=== PATIENT | female | born 1970 | race Caucasian/White ===

== ENCOUNTER 2020-03-24 12:17 | Inpatient (IN) ==
[2020-03-24 13:45] LABS: Basophils # 0.1 K/mcL (0.0-0.2); Basophils % 0.8 %; Eosinophils # 0.2 K/mcL (0.0-0.6); Eosinophils % 1.8 %; Hematocrit 35.7 % (35.3-44.9); Hemoglobin 11.1 g/dL (11.5-15.4); Immature Granulocytes % 0.3 % (0-4); Lymphocytes # 1.8 K/mcL (0.6-4.6); Lymphocytes % 18.4 %; Mean Corpuscular HGB Conc 31.1 g/dL (31.6-35.5); Mean Corpuscular Hemoglobin 25.5 pg (28.0-33.3); Mean Corpuscular Volume 82.1 fL (83.0-100.0); Mean Platelet Volume 9.6 fL (9.4-12.4); Monocytes # 0.4 K/mcL (0.0-1.3); Monocytes % 4.5 %; Neutrophils # 7.1 K/mcL (1.6-8.9); Platelet Count 443 K/mcL (140-400); Red Blood Count 4.35 M/mcL (3.82-4.97); Red Cell Distribution Width 13.3 % (11.5-14.5); Segmented Neutrophils % 74.2 %; White Blood Count 9.5 K/mcL (4.3-11.1)
[2020-03-24 14:18] LABS: Alanine Aminotransferase 7 Units/L (7-52); Albumin 3.2 g/dL (3.5-5.7); Albumin/Globulin Ratio 0.9 (1.1-2.2); Alkaline Phosphatase 110 Units/L (34-104); Aspartate Amino Transferase 11 Units/L (13-39); BUN/Creatinine Ratio 10 (6-26); Bilirubin,Total 0.3 mg/dL (0.3-1.0); Blood Urea Nitrogen 27 mg/dL (6-20); Calcium 8.2 mg/dL (8.6-10.3); Carbon Dioxide 20 mEq/L (23-29); Chloride 102 mEq/L (98-107); Globulin 3.6 g/dL (2.4-3.5); Glucose 244 mg/dL (70-105); Magnesium 1.7 mg/dL (1.6-2.6); Osmolality,Calculated 289 (280-300); Sodium 133 mEq/L (136-145); Total Protein 6.8 g/dL (6.4-8.9); Troponin I < 0.03 ng/mL (< 0.04); eGFR For African Americans 23 (> 60); eGFR For Non-African Americans 19 (> 60)
[2020-03-24] MEDS ORDERED: 0.9 % Sodium Chloride 1,000 ML IVC ONE (14:44)
[2020-03-24 15:04] LABS: Bacteria,Urine Few per hpf (None-Few); Bilirubin,Urine Negative (Negative); Blood,Urine Trace (Negative); Clarity,Urine Clear (Clear); Color,Urine Colorless (Yellow); Glucose,Urine (UA) 500 mg/dL (Normal); Ketones,Urine Negative (Negative); Leukocyte Esterase,Urine Small (Negative); Nitrite,Urine Negative (Negative); PH,Urine 6.5 pH Units (5.0-8.0); Protein,Urine >=300 mg/dL (Neg-Trace); Specific Gravity,Urine 1.008 (1.010-1.025); Squamous Epithelial Cell,Urine Few per hpf (None-Few); Urobilinogen,Urine Normal (Normal); WBC,Urine 30-50 per hpf (0-3)
[2020-03-24] MEDS ORDERED: *HR* Metoprolol 5 MG/5 ML VIAL IVP ONE (15:36)
[2020-03-24] MEDS ORDERED: cefTRIAXone 1,000 MG in 0.9 % Sodium Chloride Mini Bag 100 ML IVPB ONE (15:46)
[2020-03-24] MEDS ORDERED: Naloxone 0.4 MG/ML INJ IVP PRN (16:39)
[2020-03-24] MEDS ORDERED: niCARdipine 20 MG/200 ML MLS IVC SCH (16:45)
[2020-03-24] MEDS ORDERED: D5% in Water 1,000 ML IVC PRN (17:23)
[2020-03-24] MEDS ORDERED: Dextrose Gel 15 GM/37.5 ML TUBE PO PRN ×2 (17:23)
[2020-03-24] MEDS ORDERED: *HR* Dextrose 50 % in Water (Vial) 50 ML VIAL IVP PRN (17:23)
[2020-03-24 18:22] LABS: Complement C3 114 mg/dL (87-200)
[2020-03-24 18:36] LABS: Estimated Average Glucose 332 mg/dl; Hemoglobin A1C 13.2 %
[2020-03-24 18:53] LABS: Creatinine,Urine 43 mg/dL; Microalbumin,Urine > 1350 mg/L; Sodium, Urine 55.3 mEq/L
[2020-03-24 18:55] LABS: Troponin I < 0.03 ng/mL (< 0.04)
[2020-03-24 19:05] LABS: Creatine Kinase 85 Units/L (30-223); Uric Acid 5.1 mg/dL (2.3-7.6)
[2020-03-24] MEDS ORDERED: Insulin LISPRO 300 UNITS/3 ML VIAL SUBQ SCH (21:00)
[2020-03-25 00:35] LABS: Basophils # 0.1 K/mcL (0.0-0.2); Basophils % 0.4 %; Eosinophils # 0.1 K/mcL (0.0-0.6); Eosinophils % 1.2 %; Hematocrit 35.5 % (35.3-44.9); Hemoglobin 11.1 g/dL (11.5-15.4); Immature Granulocytes % 0.3 % (0-4); Lymphocytes % 17.1 %; Mean Corpuscular HGB Conc 31.3 g/dL (31.6-35.5); Mean Corpuscular Hemoglobin 26.1 pg (28.0-33.3); Mean Corpuscular Volume 83.3 fL (83.0-100.0); Mean Platelet Volume 9.3 fL (9.4-12.4); Monocytes # 0.5 K/mcL (0.0-1.3); Monocytes % 4.2 %; Platelet Count 452 K/mcL (140-400); Red Blood Count 4.26 M/mcL (3.82-4.97); Red Cell Distribution Width 13.5 % (11.5-14.5); Segmented Neutrophils % 76.8 %; White Blood Count 11.8 K/mcL (4.3-11.1)
[2020-03-25 00:55] LABS: Albumin 3.1 g/dL (3.5-5.7); Albumin/Globulin Ratio 0.9 (1.1-2.2); Bilirubin,Total 0.3 mg/dL (0.3-1.0); Calcium 7.9 mg/dL (8.6-10.3); Globulin 3.5 g/dL (2.4-3.5); Potassium 3.9 mEq/L (3.5-5.1); Total Protein 6.6 g/dL (6.4-8.9)
[2020-03-25] MEDS ORDERED: Insulin LISPRO 300 UNITS/3 ML VIAL SUBQ SCH (07:30)
[2020-03-25] MEDS ORDERED: Gabapentin 400 MG CAPSULE PO PRN (07:49)
[2020-03-25] MEDS ORDERED: Ringers Solution, Lactated 1,000 ML IVC SCH (08:00)
[2020-03-25] MEDS ORDERED: amLODIPine 5 MG TABLET PO SCH (09:00)
[2020-03-25 09:23] LABS: Amphetamine Screen,Urine Negative ng/mL (Cutoff=1000); Barbiturate Screen,Urine Negative ng/mL (Cutoff=200); Benzodiazepines Screen,Urine Negative ng/mL (Cutoff=200); Cannabinoid Screen,Urine Negative ng/mL (Cutoff = 50); Cocaine Screen,Urine Negative ng/mL (Cutoff= 300); Opiate Screen,Urine Negative ng/mL (Cutoff=300); Phencyclidine Screen,Urine Negative ng/mL (Cutoff=25)
[2020-03-25] MEDS: Loratadine 10 MG TABLET PO SCH (09:50)
[2020-03-25] MEDS: Metoprolol XL (24 HR) Succ 50 MG TAB.ER.24H PO SCH (09:50)
[2020-03-25] MEDS: BuPROPion SR (12 HR) 150 MG TABLET PO SCH (09:50)
[2020-03-25] MEDS: Prenatal Vit/FA 1 EACH TABLET PO SCH (09:51)
[2020-03-25] MEDS: cefTRIAXone 1,000 MG in Water for inj. (sterile) 10 ML IVP SCH (09:51)
[2020-03-25] MEDS: Insulin LISPRO 300 UNITS/3 ML VIAL SUBQ SCH ×2 (11:09→17:33)
[2020-03-25] MEDS ORDERED: cefTRIAXone 1,000 MG in Water for inj. (sterile) 10 ML IVP SCH (16:00)
[2020-03-25] MEDS: *HR* Heparin 5,000 UNIT/ML VIAL SQ SCH (17:34)
[2020-03-25] MEDS: Latanoprost 2.5 ML BOTTLE RIGHT EYE SCH (20:35)
[2020-03-26 06:04] LABS: Basophils # 0.1 K/mcL (0.0-0.2); Basophils % 0.6 %; Eosinophils # 0.2 K/mcL (0.0-0.6); Eosinophils % 2.1 %; Hematocrit 32.2 % (35.3-44.9); Hemoglobin 9.8 g/dL (11.5-15.4); Immature Granulocytes % 0.5 % (0-4); Lymphocytes # 2.6 K/mcL (0.6-4.6); Lymphocytes % 32.9 %; Mean Corpuscular HGB Conc 30.4 g/dL (31.6-35.5); Mean Corpuscular Hemoglobin 26.1 pg (28.0-33.3); Mean Corpuscular Volume 85.6 fL (83.0-100.0); Mean Platelet Volume 10.5 fL (9.4-12.4); Monocytes # 0.4 K/mcL (0.0-1.3); Neutrophils # 4.7 K/mcL (1.6-8.9); Platelet Count 310 K/mcL (140-400); Red Blood Count 3.76 M/mcL (3.82-4.97); Red Cell Distribution Width 13.6 % (11.5-14.5); Segmented Neutrophils % 58.9 %; White Blood Count 7.9 K/mcL (4.3-11.1)
[2020-03-26] MEDS: *HR* Heparin 5,000 UNIT/ML VIAL SQ SCH ×2 (06:08→17:19)
[2020-03-26] MEDS: Levothyroxine 25 MCG TABLET PO SCH (06:11)
[2020-03-26 06:45] LABS: Albumin 2.6 g/dL (3.5-5.7); Albumin/Globulin Ratio 0.9 (1.1-2.2); Bilirubin,Total 0.2 mg/dL (0.3-1.0); Calcium 7.7 mg/dL (8.6-10.3); Potassium 4.4 mEq/L (3.5-5.1); Total Protein 5.6 g/dL (6.4-8.9)
[2020-03-26 06:46] LABS: Magnesium 1.5 mg/dL (1.6-2.6); Phosphorous 4.4 mg/dL (2.7-4.5)
[2020-03-26] MEDS: Insulin LISPRO 300 UNITS/3 ML VIAL SUBQ SCH ×6 (07:48→17:19)
[2020-03-26] MEDS: Metoprolol XL (24 HR) Succ 50 MG TAB.ER.24H PO SCH (07:49)
[2020-03-26] MEDS: BuPROPion SR (12 HR) 150 MG TABLET PO SCH (07:50)
[2020-03-26] MEDS: cefTRIAXone 1,000 MG in Water for inj. (sterile) 10 ML IVP SCH (07:50)
[2020-03-26] MEDS: Magnesium Oxide 400 MG TABLET PO SCH ×2 (07:50→20:31)
[2020-03-26] MEDS: Loratadine 10 MG TABLET PO SCH (07:50)
[2020-03-26] MEDS: amLODIPine 5 MG TABLET PO SCH (07:50)
[2020-03-26] MEDS: Prenatal Vit/FA 1 EACH TABLET PO SCH (07:50)
[2020-03-26] MEDS: Insulin DETEMIR 100 UNIT/ML X5UNITS SUBQ SCH ×2 (10:08→20:32)
[2020-03-26] MEDS: hydrALAZINE 25 MG TABLET PO SCH ×2 (17:18→23:26)
[2020-03-26] MEDS: Cefdinir 300 MG CAPSULE PO SCH (20:31)
[2020-03-26] MEDS: Latanoprost 2.5 ML BOTTLE RIGHT EYE SCH (20:32)
[2020-03-27 05:04] LABS: Basophils # 0.1 K/mcL (0.0-0.2); Basophils % 0.7 %; Eosinophils # 0.2 K/mcL (0.0-0.6); Eosinophils % 2.1 %; Hematocrit 32.6 % (35.3-44.9); Hemoglobin 10.2 g/dL (11.5-15.4); Immature Granulocytes % 0.5 % (0-4); Lymphocytes % 25.7 %; Mean Corpuscular HGB Conc 31.3 g/dL (31.6-35.5); Mean Corpuscular Hemoglobin 26.1 pg (28.0-33.3); Mean Corpuscular Volume 83.4 fL (83.0-100.0); Mean Platelet Volume 10.8 fL (9.4-12.4); Monocytes # 0.6 K/mcL (0.0-1.3); Neutrophils # 7.7 K/mcL (1.6-8.9); Platelet Count 357 K/mcL (140-400); Red Blood Count 3.91 M/mcL (3.82-4.97); Red Cell Distribution Width 13.3 % (11.5-14.5); White Blood Count 11.7 K/mcL (4.3-11.1)
[2020-03-27 05:27] LABS: Albumin/Globulin Ratio 0.9 (1.1-2.2); Bilirubin,Total 0.2 mg/dL (0.3-1.0); Calcium 8.3 mg/dL (8.6-10.3); Globulin 3.4 g/dL (2.4-3.5); Magnesium 1.7 mg/dL (1.6-2.6); Phosphorous 4.6 mg/dL (2.7-4.5); Potassium 4.1 mEq/L (3.5-5.1); Total Protein 6.4 g/dL (6.4-8.9)
[2020-03-27 05:53] LABS: Hepatitis B Surface Antigen Nonreactive (Nonreactive)
[2020-03-27] MEDS: Levothyroxine 25 MCG TABLET PO SCH (05:59)
[2020-03-27] MEDS: *HR* Heparin 5,000 UNIT/ML VIAL SQ SCH ×2 (05:59→18:05)
[2020-03-27 06:22] LABS: Hepatitis B Core IgM Nonreactive (Nonreactive); Hepatitis C Virus Antibody Nonreactive (Nonreactive)
[2020-03-27 06:24] LABS: Hepatitis A Antibody IgM Nonreactive (Nonreactive)
[2020-03-27] MEDS: Insulin LISPRO 300 UNITS/3 ML VIAL SUBQ SCH ×6 (08:20→18:04)
[2020-03-27] MEDS: hydrALAZINE 25 MG TABLET PO SCH ×3 (08:21→23:34)
[2020-03-27] MEDS: Cefdinir 300 MG CAPSULE PO SCH ×2 (08:22→22:00)
[2020-03-27] MEDS: BuPROPion SR (12 HR) 150 MG TABLET PO SCH (08:22)
[2020-03-27] MEDS: Loratadine 10 MG TABLET PO SCH (08:22)
[2020-03-27] MEDS: Prenatal Vit/FA 1 EACH TABLET PO SCH (08:22)
[2020-03-27] MEDS: Metoprolol XL (24 HR) Succ 50 MG TAB.ER.24H PO SCH (08:22)
[2020-03-27] MEDS: amLODIPine 5 MG TABLET PO SCH (08:23)
[2020-03-27] MEDS: Magnesium Oxide 400 MG TABLET PO SCH ×2 (08:23→20:50)
[2020-03-27] MEDS: Insulin DETEMIR 100 UNIT/ML X5UNITS SUBQ SCH ×2 (08:23→20:50)
[2020-03-27] MEDS: Latanoprost 2.5 ML BOTTLE RIGHT EYE SCH (22:04)
[2020-03-28 01:12] LABS: Calcium 8.1 mg/dL (8.6-10.3); Magnesium 1.7 mg/dL (1.6-2.6); Phosphorous 5.3 mg/dL (2.7-4.5); Potassium 4.4 mEq/L (3.5-5.1)
[2020-03-28] MEDS: *HR* Heparin 5,000 UNIT/ML VIAL SQ SCH ×2 (07:35→17:49)
[2020-03-28] MEDS: Magnesium Oxide 400 MG TABLET PO SCH ×2 (07:36→20:36)
[2020-03-28] MEDS: hydrALAZINE 25 MG TABLET PO SCH ×3 (07:36→23:36)
[2020-03-28] MEDS: Cefdinir 300 MG CAPSULE PO SCH ×2 (07:36→09:16)
[2020-03-28] MEDS: Prenatal Vit/FA 1 EACH TABLET PO SCH (07:36)
[2020-03-28] MEDS: Loratadine 10 MG TABLET PO SCH (07:36)
[2020-03-28] MEDS: amLODIPine 5 MG TABLET PO SCH (07:37)
[2020-03-28] MEDS: Levothyroxine 25 MCG TABLET PO SCH (07:40)
[2020-03-28] MEDS: Insulin DETEMIR 100 UNIT/ML X5UNITS SUBQ SCH ×2 (07:40→20:39)
[2020-03-28] MEDS: BuPROPion SR (12 HR) 150 MG TABLET PO SCH (07:40)
[2020-03-28] MEDS: Insulin LISPRO 300 UNITS/3 ML VIAL SUBQ SCH ×6 (07:41→16:29)
[2020-03-28 09:36] LABS: ANA IgG by ELISA NONE DETECTED (None Detected)
[2020-03-28] MEDS: Latanoprost 2.5 ML BOTTLE RIGHT EYE SCH (20:36)
[2020-03-29 01:46] LABS: Magnesium 1.7 mg/dL (1.6-2.6); Phosphorous 5.2 mg/dL (2.7-4.5); Potassium 4.4 mEq/L (3.5-5.1)
[2020-03-29] MEDS: Levothyroxine 25 MCG TABLET PO SCH (06:08)
[2020-03-29] MEDS: *HR* Heparin 5,000 UNIT/ML VIAL SQ SCH ×2 (06:08→16:40)
[2020-03-29 07:32] LABS: Anti-Streptolysin O Antibody 65 IU/mL (0-330)
[2020-03-29 07:35] LABS: Serine Protease-3 Antibody 5 AU/mL (0-19)
[2020-03-29] MEDS: amLODIPine 5 MG TABLET PO SCH (07:37)
[2020-03-29] MEDS: BuPROPion SR (12 HR) 150 MG TABLET PO SCH (07:37)
[2020-03-29] MEDS: Prenatal Vit/FA 1 EACH TABLET PO SCH (07:38)
[2020-03-29] MEDS: Cefdinir 300 MG CAPSULE PO SCH (07:38)
[2020-03-29] MEDS: Magnesium Oxide 400 MG TABLET PO SCH ×2 (07:38→19:59)
[2020-03-29] MEDS: hydrALAZINE 25 MG TABLET PO SCH (07:38)
[2020-03-29] MEDS: Insulin DETEMIR 100 UNIT/ML X5UNITS SUBQ SCH ×2 (07:39→19:59)
[2020-03-29] MEDS: Loratadine 10 MG TABLET PO SCH (07:39)
[2020-03-29] MEDS: Insulin LISPRO 300 UNITS/3 ML VIAL SUBQ SCH ×6 (07:40→16:41)
[2020-03-29] MEDS ORDERED: carvediloL 6.25 MG TABLET PO SCH ×2 (08:00→17:00)
[2020-03-29] MEDS ORDERED: NIFEdipine XL (24 HR) 60 MG TAB.ER.24 PO SCH (09:00)
[2020-03-29 11:06] LABS: Total Volume 24 Hour,Urine 1.75 Liters (0.60-1.60)
[2020-03-29 11:49] LABS: Creatinine 24 Hour,Urine 910 mg/day (600-1800); Creatinine,Urine 52 mg/dL; Microalbumin,Urine > 1350 mg/L; Protein/Creatinine Ratio,Urine 7.31 mg/mg (0.00-0.20); Total Protein 24 Hour,Urine 6650 mg/day (50-80)
[2020-03-29] MEDS ORDERED: NIFEdipine XL (24 HR) 30 MG TAB.ER.24 PO ONE (12:27)
[2020-03-29 18:07] LABS: GBM IgG Multiplex Bead Assay 1 AU/mL (0-19); Glomerular Basement Memb IgG NEGATIVE (Negative)
[2020-03-29] MEDS ORDERED: carvediloL 6.25 MG TABLET PO ONE (18:30)
[2020-03-29] MEDS: Albumin 25% 25gram/100mL 25 GM/100 ML IV.SOLN IVPB SCH (19:59)
[2020-03-29] MEDS: Latanoprost 2.5 ML BOTTLE RIGHT EYE SCH (19:59)
[2020-03-30 02:47] LABS: Urine Collection Volume RANDOM mL
[2020-03-30 03:53] LABS: Basophils # 0.1 K/mcL (0.0-0.2); Basophils % 0.5 %; Eosinophils # 0.2 K/mcL (0.0-0.6); Hematocrit 30.8 % (35.3-44.9); Hemoglobin 9.7 g/dL (11.5-15.4); Immature Granulocytes % 0.4 % (0-4); Lymphocytes # 2.6 K/mcL (0.6-4.6); Lymphocytes % 22.2 %; Mean Corpuscular HGB Conc 31.5 g/dL (31.6-35.5); Mean Corpuscular Hemoglobin 25.6 pg (28.0-33.3); Mean Corpuscular Volume 81.3 fL (83.0-100.0); Mean Platelet Volume 9.7 fL (9.4-12.4); Monocytes # 0.6 K/mcL (0.0-1.3); Monocytes % 4.7 %; Neutrophils # 8.3 K/mcL (1.6-8.9); Platelet Count 379 K/mcL (140-400); Red Blood Count 3.79 M/mcL (3.82-4.97); Red Cell Distribution Width 13.8 % (11.5-14.5); Segmented Neutrophils % 70.2 %; White Blood Count 11.8 K/mcL (4.3-11.1)
[2020-03-30 04:17] LABS: Calcium 8.6 mg/dL (8.6-10.3); Phosphorous 4.8 mg/dL (2.7-4.5); Potassium 4.2 mEq/L (3.5-5.1)
[2020-03-30 04:40] LABS: Folate 12.6 ng/mL (3.0-16.0)
[2020-03-30] MEDS: Levothyroxine 25 MCG TABLET PO SCH (05:43)
[2020-03-30] MEDS: *HR* Heparin 5,000 UNIT/ML VIAL SQ SCH ×2 (05:43→17:10)
[2020-03-30] MEDS: Prenatal Vit/FA 1 EACH TABLET PO SCH (07:21)
[2020-03-30] MEDS: Loratadine 10 MG TABLET PO SCH (07:21)
[2020-03-30] MEDS: Magnesium Oxide 400 MG TABLET PO SCH ×2 (07:21→20:41)
[2020-03-30] MEDS: carvediloL 6.25 MG TABLET PO SCH ×2 (07:21→20:42)
[2020-03-30] MEDS: Cefdinir 300 MG CAPSULE PO SCH (07:21)
[2020-03-30] MEDS: Insulin DETEMIR 100 UNIT/ML X5UNITS SUBQ SCH ×2 (07:25→20:42)
[2020-03-30] MEDS: BuPROPion SR (12 HR) 150 MG TABLET PO SCH (07:25)
[2020-03-30] MEDS: Insulin LISPRO 300 UNITS/3 ML VIAL SUBQ SCH ×6 (07:26→17:09)
[2020-03-30 08:50] LABS: Prothrombin Time 11.4 Seconds (9.4-12.1)
[2020-03-30] MEDS ORDERED: NIFEdipine XL (24 HR) 30 MG TAB.ER.24 PO SCH (09:00)
[2020-03-30] MEDS ORDERED: NIFEdipine XL (24 HR) 60 MG TAB.ER.24 PO SCH (09:00)
[2020-03-30] MEDS ORDERED: NIFEdipine XL (24 HR) 30 MG TAB.ER.24 PO ONE (09:00)
[2020-03-30] MEDS: Albumin 25% 25gram/100mL 25 GM/100 ML IV.SOLN IVPB SCH (10:31)
[2020-03-30] MEDS ORDERED: *HR* LORazepam 0.5 MG TABLET PO PRN (10:32)
[2020-03-30] MEDS: Iron Sucrose Complex 250 MG in 0.9 % Sodium Chloride 250 ML IVPB SCH (11:35)
[2020-03-30] MEDS ORDERED: Sodium Bicarbonate 75 MEQ in 0.45 % Sodium Chloride 1,000 ML IVC SCH (16:15)
[2020-03-30] MEDS: Latanoprost 2.5 ML BOTTLE RIGHT EYE SCH (20:43)
[2020-03-31] MEDS: *HR* Heparin 5,000 UNIT/ML VIAL SQ SCH ×2 (04:49→16:50)
[2020-03-31] MEDS: Levothyroxine 25 MCG TABLET PO SCH (04:57)
[2020-03-31] MEDS: Insulin LISPRO 300 UNITS/3 ML VIAL SUBQ SCH ×6 (07:10→16:51)
[2020-03-31] MEDS: Iron Sucrose Complex 250 MG in 0.9 % Sodium Chloride 250 ML IVPB SCH (07:28)
[2020-03-31] MEDS: Magnesium Oxide 400 MG TABLET PO SCH ×2 (07:41→20:39)
[2020-03-31] MEDS: Prenatal Vit/FA 1 EACH TABLET PO SCH (07:41)
[2020-03-31] MEDS: BuPROPion SR (12 HR) 150 MG TABLET PO SCH (07:41)
[2020-03-31] MEDS: NIFEdipine XL (24 HR) 30 MG TAB.ER.24 PO SCH (07:41)
[2020-03-31] MEDS: carvediloL 25 MG TABLET PO SCH ×2 (07:41→16:51)
[2020-03-31] MEDS: Loratadine 10 MG TABLET PO SCH (07:41)
[2020-03-31] MEDS: Cefdinir 300 MG CAPSULE PO SCH (07:42)
[2020-03-31] MEDS: Insulin DETEMIR 100 UNIT/ML X5UNITS SUBQ SCH ×2 (07:42→20:39)
[2020-03-31 07:52] LABS: Basophils # 0.1 K/mcL (0.0-0.2); Basophils % 0.7 %; Eosinophils # 0.2 K/mcL (0.0-0.6); Eosinophils % 1.5 %; Hematocrit 30.5 % (35.3-44.9); Hemoglobin 9.7 g/dL (11.5-15.4); Immature Granulocytes % 1.6 % (0-4); Lymphocytes # 1.8 K/mcL (0.6-4.6); Lymphocytes % 15.3 %; Mean Corpuscular HGB Conc 31.8 g/dL (31.6-35.5); Mean Corpuscular Hemoglobin 25.6 pg (28.0-33.3); Mean Corpuscular Volume 80.5 fL (83.0-100.0); Mean Platelet Volume 10.8 fL (9.4-12.4); Monocytes # 0.6 K/mcL (0.0-1.3); Monocytes % 4.8 %; Neutrophils # 9.1 K/mcL (1.6-8.9); Nucleated Red Blood Cells 0.2 /100 WBC (0); Platelet Count 326 K/mcL (140-400); Red Blood Count 3.79 M/mcL (3.82-4.97); Segmented Neutrophils % 76.1 %
[2020-03-31 08:16] LABS: Calcium 8.6 mg/dL (8.6-10.3); Magnesium 2.1 mg/dL (1.6-2.6); Phosphorous 4.6 mg/dL (2.7-4.5)
[2020-03-31] MEDS ORDERED: *HR* Midazolam HCl 2 MG/2 ML VIAL IVP ONE (09:19)
[2020-03-31] MEDS ORDERED: *HR* FentaNYL (PF) 100 MCG/2 ML VIAL IVP ONE (09:19)
[2020-03-31] MEDS ORDERED: 0.9 % Sodium Chloride 500 ML ONE (09:30)
[2020-03-31] MEDS: Sodium Bicarbonate 75 MEQ in 0.45 % Sodium Chloride 1,000 ML IVC SCH ×2 (11:40→21:27)
[2020-03-31] MEDS: Latanoprost 2.5 ML BOTTLE RIGHT EYE SCH (20:39)
[2020-03-31] MEDS ORDERED: carvediloL 6.25 MG TABLET PO ONE (22:49)
[2020-04-01 04:45] LABS: Basophils # 0.1 K/mcL (0.0-0.2); Basophils % 0.5 %; Eosinophils # 0.1 K/mcL (0.0-0.6); Eosinophils % 0.7 %; Hematocrit 30.3 % (35.3-44.9); Hemoglobin 9.5 g/dL (11.5-15.4); Immature Granulocytes % 0.9 % (0-4); Immature Platelets 7.2 % (1.1-6.1); Lymphocytes # 1.4 K/mcL (0.6-4.6); Lymphocytes % 8.7 %; Mean Corpuscular HGB Conc 31.4 g/dL (31.6-35.5); Mean Corpuscular Hemoglobin 25.3 pg (28.0-33.3); Mean Corpuscular Volume 80.8 fL (83.0-100.0); Mean Platelet Volume 11.8 fL (9.4-12.4); Monocytes # 0.7 K/mcL (0.0-1.3); Monocytes % 4.1 %; Neutrophils # 13.9 K/mcL (1.6-8.9); Platelet Count 261 K/mcL (140-400); Red Blood Count 3.75 M/mcL (3.82-4.97); Red Cell Distribution Width 13.9 % (11.5-14.5); Segmented Neutrophils % 85.1 %; White Blood Count 16.3 K/mcL (4.3-11.1)
[2020-04-01 04:52] LABS: Calcium 8.3 mg/dL (8.6-10.3); Magnesium 2.1 mg/dL (1.6-2.6); Potassium 5.3 mEq/L (3.5-5.1)
[2020-04-01 05:05] LABS: Large Platelets Present (Not Present); Platelet Estimate Normal (Normal)
[2020-04-01] MEDS: *HR* Heparin 5,000 UNIT/ML VIAL SQ SCH ×2 (05:42→18:28)
[2020-04-01] MEDS: Levothyroxine 25 MCG TABLET PO SCH (05:42)
[2020-04-01] MEDS: Iron Sucrose Complex 250 MG in 0.9 % Sodium Chloride 250 ML IVPB SCH (09:35)
[2020-04-01] MEDS: BuPROPion SR (12 HR) 150 MG TABLET PO SCH (09:35)
[2020-04-01] MEDS: NIFEdipine XL (24 HR) 30 MG TAB.ER.24 PO SCH (09:35)
[2020-04-01] MEDS: Loratadine 10 MG TABLET PO SCH (09:35)
[2020-04-01] MEDS: carvediloL 25 MG TABLET PO SCH ×2 (09:35→18:28)
[2020-04-01] MEDS: Magnesium Oxide 400 MG TABLET PO SCH ×2 (09:35→20:39)
[2020-04-01] MEDS: Prenatal Vit/FA 1 EACH TABLET PO SCH (09:35)
[2020-04-01] MEDS: Insulin DETEMIR 100 UNIT/ML X5UNITS SUBQ SCH ×2 (09:36→20:39)
[2020-04-01] MEDS: Insulin LISPRO 300 UNITS/3 ML VIAL SUBQ SCH ×6 (09:37→18:28)
[2020-04-01] MEDS: SODIUM ZIRCONIUM CYCLOSILICATE 5 GM POWD.PACK PO SCH (11:38)
[2020-04-01] MEDS: Sodium Bicarbonate 75 MEQ in 0.45 % Sodium Chloride 1,000 ML IVC SCH (18:27)
[2020-04-01] MEDS: Latanoprost 2.5 ML BOTTLE RIGHT EYE SCH (20:43)
[2020-04-02 02:33] LABS: Basophils # 0.1 K/mcL (0.0-0.2); Basophils % 0.5 %; Eosinophils # 0.1 K/mcL (0.0-0.6); Hematocrit 26.8 % (35.3-44.9); Hemoglobin 8.6 g/dL (11.5-15.4); Lymphocytes % 16.3 %; Mean Corpuscular HGB Conc 32.1 g/dL (31.6-35.5); Mean Corpuscular Hemoglobin 26.1 pg (28.0-33.3); Mean Corpuscular Volume 81.5 fL (83.0-100.0); Mean Platelet Volume 10.2 fL (9.4-12.4); Monocytes # 0.6 K/mcL (0.0-1.3); Monocytes % 5.3 %; Neutrophils # 9.2 K/mcL (1.6-8.9); Nucleated Red Blood Cells 0.2 /100 WBC (0); Platelet Count 292 K/mcL (140-400); Red Blood Count 3.29 M/mcL (3.82-4.97); Segmented Neutrophils % 75.9 %; White Blood Count 12.1 K/mcL (4.3-11.1)
[2020-04-02 02:55] LABS: Calcium 8.2 mg/dL (8.6-10.3); Magnesium 2.2 mg/dL (1.6-2.6); Potassium 3.7 mEq/L (3.5-5.1)
[2020-04-02] MEDS: Sodium Bicarbonate 75 MEQ in 0.45 % Sodium Chloride 1,000 ML IVC SCH (03:20)
[2020-04-02] MEDS: *HR* Heparin 5,000 UNIT/ML VIAL SQ SCH ×2 (06:25→17:49)
[2020-04-02] MEDS: Levothyroxine 25 MCG TABLET PO SCH (06:25)
[2020-04-02] MEDS: NIFEdipine XL (24 HR) 30 MG TAB.ER.24 PO SCH (08:46)
[2020-04-02] MEDS: Prenatal Vit/FA 1 EACH TABLET PO SCH (08:46)
[2020-04-02] MEDS: Insulin LISPRO 300 UNITS/3 ML VIAL SUBQ SCH ×6 (08:46→18:11)
[2020-04-02] MEDS: cefTRIAXone 2,000 MG in 0.9 % Sodium Chloride Mini Bag 100 ML IVPB SCH (08:47)
[2020-04-02] MEDS: carvediloL 25 MG TABLET PO SCH ×2 (08:47→17:49)
[2020-04-02] MEDS: Loratadine 10 MG TABLET PO SCH (08:47)
[2020-04-02] MEDS: BuPROPion SR (12 HR) 150 MG TABLET PO SCH (08:47)
[2020-04-02] MEDS: Magnesium Oxide 400 MG TABLET PO SCH ×2 (08:47→20:46)
[2020-04-02] MEDS: Insulin DETEMIR 100 UNIT/ML X5UNITS SUBQ SCH ×2 (08:48→20:46)
[2020-04-02] MEDS: SODIUM ZIRCONIUM CYCLOSILICATE 5 GM POWD.PACK PO SCH (10:11)
[2020-04-02] MEDS ORDERED: Ferumoxytol 510 MG in 0.9 % Sodium Chloride 100 ML IVPB ONE (10:16)
[2020-04-02] MEDS ORDERED: Gabapentin 100 MG CAPSULE PO PRN (10:18)
[2020-04-02] MEDS ORDERED: Furosemide 40 MG/4 ML VIAL IVP ONE ×2 (12:16)
[2020-04-02 13:53] LABS: Adenovirus Not Detected (Not Detect); Bordetella Pertussis Not Detected (Not Detect); Chlamydophila pneumoniae Not Detected (Not Detect); Coronavirus 229E Not Detected (Not Detect); Coronavirus HKU1 Not Detected (Not Detect); Coronavirus NL63 Not Detected (Not Detect); Coronavirus OC43 Not Detected (Not Detect); Human Metapneumovirus Not Detected (Not Detect); Human Rhinovirus/Enterovirus Not Detected (Not Detect); Influenza A Subtype 2009 H1 Not Detected (Not Detect); Influenza B Not Detected (Not Detect); Mycoplasma pneumoniae Not Detected (Not Detect); Parainfluenza Virus 1 Not Detected (Not Detect); Parainfluenza Virus 2 Not Detected (Not Detect); Parainfluenza Virus 3 Not Detected (Not Detect); Parainfluenza Virus 4 Not Detected (Not Detect); Respiratory Syncytial Virus Not Detected (Not Detect); SARS-CoV-2 Not Detected (Not Detect)
[2020-04-02] MEDS: Cyanocobalamin (B-12) 1,000 MCG/ML VIAL IM SCH (14:38)
[2020-04-02] MEDS ORDERED: Perflutren Lipid Microsphere 1.3 ML in 0.9 % Sodium Chloride 8.7 ML IVP PRN (17:53)
[2020-04-02 18:03] LABS: ABG Base Excess -2 mEq/L (-2 to 3); ABG HCO3 23 mEq/L (21-27); ABG Oxygen Saturation 84 % (95-98); ABG PCO2 37 mmHg (35-45); ABG PO2 48 mmHg (85-104); ABG TCO2 24 mEq/L (20-26)
[2020-04-02] MEDS: Aspirin 325 MG TABLET PO SCH (19:25)
[2020-04-02] MEDS: Latanoprost 2.5 ML BOTTLE RIGHT EYE SCH (20:46)
[2020-04-02 20:59] LABS: ABG Base Excess -2 mEq/L (-2 to 3); ABG HCO3 23 mEq/L (21-27); ABG Oxygen Saturation 90 % (95-98); ABG PCO2 36 mmHg (35-45); ABG PH 7.41 pH Units (7.32-7.45); ABG PO2 58 mmHg (85-104); ABG TCO2 24 mEq/L (20-26)
[2020-04-03 01:01] LABS: Basophils # 0.1 K/mcL (0.0-0.2); Basophils % 0.4 %; Eosinophils # 0.1 K/mcL (0.0-0.6); Eosinophils % 1.1 %; Hematocrit 24.5 % (35.3-44.9); Hemoglobin 7.8 g/dL (11.5-15.4); Immature Granulocytes % 0.9 % (0-4); Lymphocytes # 1.7 K/mcL (0.6-4.6); Lymphocytes % 13.8 %; Mean Corpuscular HGB Conc 31.8 g/dL (31.6-35.5); Mean Corpuscular Hemoglobin 26.1 pg (28.0-33.3); Mean Corpuscular Volume 81.9 fL (83.0-100.0); Mean Platelet Volume 10.4 fL (9.4-12.4); Monocytes # 0.8 K/mcL (0.0-1.3); Monocytes % 6.4 %; Neutrophils # 9.5 K/mcL (1.6-8.9); Platelet Count 284 K/mcL (140-400); Red Blood Count 2.99 M/mcL (3.82-4.97); Red Cell Distribution Width 13.9 % (11.5-14.5); Segmented Neutrophils % 77.4 %; White Blood Count 12.3 K/mcL (4.3-11.1)
[2020-04-03 01:10] LABS: Prothrombin Time 11.9 Seconds (9.4-12.1)
[2020-04-03 01:21] LABS: Albumin 3.3 g/dL (3.5-5.7); Albumin/Globulin Ratio 0.9 (1.1-2.2); Bilirubin,Total 0.3 mg/dL (0.3-1.0); Calcium 7.6 mg/dL (8.6-10.3); Chol/HDL Ratio 3.7 (0-4.9); Globulin 3.5 g/dL (2.4-3.5); Magnesium 2.3 mg/dL (1.6-2.6); Potassium 3.7 mEq/L (3.5-5.1); Total Protein 6.8 g/dL (6.4-8.9); Troponin I 0.03 ng/mL (< 0.04)
[2020-04-03] MEDS: Levothyroxine 25 MCG TABLET PO SCH (06:27)
[2020-04-03] MEDS: *HR* Heparin 5,000 UNIT/ML VIAL SQ SCH ×2 (06:27→17:45)
[2020-04-03 08:17] LABS: Alpha 2 Globulin (PEP) 0.81 g/dL (0.48-1.05); Beta Globulin (PEP) 0.78 g/dL (0.48-1.10)
[2020-04-03 08:26] LABS: Immunoglobulin A 212 mg/dL (68-408); Immunoglobulin G 1250 mg/dL (768-1632); Immunoglobulin M 550 mg/dL (35-263)
[2020-04-03 08:27] LABS: IFE Reflexed IFE Done
[2020-04-03] MEDS: cefTRIAXone 2,000 MG in 0.9 % Sodium Chloride Mini Bag 100 ML IVPB SCH (09:02)
[2020-04-03] MEDS: Insulin DETEMIR 100 UNIT/ML X5UNITS SUBQ SCH ×2 (09:02→21:11)
[2020-04-03] MEDS: Insulin LISPRO 300 UNITS/3 ML VIAL SUBQ SCH ×6 (09:03→17:45)
[2020-04-03] MEDS: Cyanocobalamin (B-12) 1,000 MCG/ML VIAL IM SCH (09:03)
[2020-04-03] MEDS: Aspirin 325 MG TABLET PO SCH (09:04)
[2020-04-03] MEDS: Prenatal Vit/FA 1 EACH TABLET PO SCH (09:04)
[2020-04-03] MEDS: carvediloL 25 MG TABLET PO SCH ×2 (09:04→16:54)
[2020-04-03] MEDS: BuPROPion SR (12 HR) 150 MG TABLET PO SCH (09:04)
[2020-04-03] MEDS: NIFEdipine XL (24 HR) 30 MG TAB.ER.24 PO SCH (09:04)
[2020-04-03] MEDS: Loratadine 10 MG TABLET PO SCH (09:04)
[2020-04-03] MEDS: Magnesium Oxide 400 MG TABLET PO SCH ×2 (09:04→21:11)
[2020-04-03] MEDS ORDERED: Furosemide 40 MG/4 ML VIAL IVP ONE (14:26)
[2020-04-03] MEDS ORDERED: Ondansetron 4 MG/2 ML VIAL IVP ONE (14:56)
[2020-04-03] MEDS: Latanoprost 2.5 ML BOTTLE RIGHT EYE SCH (21:11)
[2020-04-04 05:11] LABS: Prothrombin Time 11.8 Seconds (9.4-12.1)
[2020-04-04 05:21] LABS: Basophils % 0.3 %; Eosinophils # 0.2 K/mcL (0.0-0.6); Eosinophils % 1.5 %; Hematocrit 24.2 % (35.3-44.9); Hemoglobin 7.6 g/dL (11.5-15.4); Lymphocytes # 1.4 K/mcL (0.6-4.6); Lymphocytes % 12.3 %; Mean Corpuscular HGB Conc 31.4 g/dL (31.6-35.5); Mean Corpuscular Hemoglobin 25.5 pg (28.0-33.3); Mean Corpuscular Volume 81.2 fL (83.0-100.0); Mean Platelet Volume 10.3 fL (9.4-12.4); Monocytes # 0.7 K/mcL (0.0-1.3); Monocytes % 6.3 %; Platelet Count 283 K/mcL (140-400); Red Blood Count 2.98 M/mcL (3.82-4.97); Red Cell Distribution Width 13.7 % (11.5-14.5); Segmented Neutrophils % 78.6 %; White Blood Count 11.4 K/mcL (4.3-11.1)
[2020-04-04 05:27] LABS: Calcium 7.5 mg/dL (8.6-10.3); Potassium 3.8 mEq/L (3.5-5.1)
[2020-04-04 05:28] LABS: Magnesium 2.4 mg/dL (1.6-2.6)
[2020-04-04 05:37] LABS: Hepatitis B Surface Antibody < 3.10 mIU/mL
[2020-04-04 05:48] LABS: Hepatitis B Surface Antigen Nonreactive (Nonreactive)
[2020-04-04 06:17] LABS: Hepatitis B Core IgM Nonreactive (Nonreactive)
[2020-04-04] MEDS: Levothyroxine 25 MCG TABLET PO SCH (06:34)
[2020-04-04] MEDS: *HR* Heparin 5,000 UNIT/ML VIAL SQ SCH ×2 (06:34→17:36)
[2020-04-04] MEDS: Insulin LISPRO 300 UNITS/3 ML VIAL SUBQ SCH ×6 (07:34→17:35)
[2020-04-04] MEDS: Insulin DETEMIR 100 UNIT/ML X5UNITS SUBQ SCH ×2 (07:53→20:27)
[2020-04-04] MEDS ORDERED: 0.9 % Sodium Chloride 250 ML IVC PRN (07:54)
[2020-04-04] MEDS ORDERED: *HR* Heparin 10,000 UNIT/10 ML VIAL IV PRN (07:54)
[2020-04-04] MEDS ORDERED: 0.9 % Sodium Chloride 1,000 ML PRIME SCH (08:00)
[2020-04-04] MEDS ORDERED: *HR* Midazolam HCl 2 MG/2 ML VIAL IVP ONE (08:23)
[2020-04-04] MEDS ORDERED: *HR* FentaNYL (PF) 100 MCG/2 ML VIAL IVP ONE (08:23)
[2020-04-04] MEDS ORDERED: Heparin 1,000 UNITS/500 mL 500 ML ONE (08:23)
[2020-04-04] MEDS ORDERED: Lidocaine/EPI 1:100k 1% 50 ML VIAL ONE (08:24)
[2020-04-04] MEDS ORDERED: 0.9 % Sodium Chloride 500 ML ONE (08:46)
[2020-04-04] MEDS ORDERED: CeFAZolin 2,000 MG/50 ML BAG IVPB ONE (08:59)
[2020-04-04] MEDS ORDERED: *HR* Heparin 5,000 UNIT/ML VIAL ONE (09:04)
[2020-04-04] MEDS: cefTRIAXone 2,000 MG in 0.9 % Sodium Chloride Mini Bag 100 ML IVPB SCH (12:29)
[2020-04-04] MEDS: Aspirin 325 MG TABLET PO SCH (12:30)
[2020-04-04] MEDS: Prenatal Vit/FA 1 EACH TABLET PO SCH (12:30)
[2020-04-04] MEDS: Magnesium Oxide 400 MG TABLET PO SCH ×2 (12:30→20:27)
[2020-04-04] MEDS: Loratadine 10 MG TABLET PO SCH (12:30)
[2020-04-04] MEDS: BuPROPion SR (12 HR) 150 MG TABLET PO SCH (12:30)
[2020-04-04] MEDS: NIFEdipine XL (24 HR) 30 MG TAB.ER.24 PO SCH (12:30)
[2020-04-04] MEDS: carvediloL 25 MG TABLET PO SCH (12:30)
[2020-04-04] MEDS: Latanoprost 2.5 ML BOTTLE RIGHT EYE SCH (20:27)
[2020-04-05] MEDS: Levothyroxine 25 MCG TABLET PO SCH (05:35)
[2020-04-05] MEDS: *HR* Heparin 5,000 UNIT/ML VIAL SQ SCH ×2 (05:37→18:01)
[2020-04-05 07:11] LABS: Basophils # 0.1 K/mcL (0.0-0.2); Basophils % 0.4 %; Eosinophils # 0.2 K/mcL (0.0-0.6); Eosinophils % 1.4 %; Hematocrit 24.8 % (35.3-44.9); Hemoglobin 7.8 g/dL (11.5-15.4); Immature Granulocytes % 0.8 % (0-4); Lymphocytes # 1.2 K/mcL (0.6-4.6); Lymphocytes % 10.1 %; Mean Corpuscular HGB Conc 31.5 g/dL (31.6-35.5); Mean Corpuscular Hemoglobin 25.8 pg (28.0-33.3); Mean Corpuscular Volume 82.1 fL (83.0-100.0); Mean Platelet Volume 10.3 fL (9.4-12.4); Monocytes # 0.7 K/mcL (0.0-1.3); Monocytes % 6.3 %; Neutrophils # 9.2 K/mcL (1.6-8.9); Platelet Count 293 K/mcL (140-400); Red Blood Count 3.02 M/mcL (3.82-4.97); Red Cell Distribution Width 13.8 % (11.5-14.5); White Blood Count 11.4 K/mcL (4.3-11.1)
[2020-04-05 07:30] LABS: Magnesium 2.4 mg/dL (1.6-2.6); Phosphorous 6.1 mg/dL (2.7-4.5)
[2020-04-05] MEDS ORDERED: *HR* Heparin 10,000 UNIT/10 ML VIAL IV PRN (07:31)
[2020-04-05] MEDS ORDERED: 0.9 % Sodium Chloride 250 ML IVC PRN (07:31)
[2020-04-05 07:33] LABS: Calcium 7.7 mg/dL (8.6-10.3)
[2020-04-05] MEDS ORDERED: 0.9 % Sodium Chloride 1,000 ML PRIME SCH (07:45)
[2020-04-05] MEDS: Aspirin 325 MG TABLET PO SCH (08:10)
[2020-04-05] MEDS: Loratadine 10 MG TABLET PO SCH (08:10)
[2020-04-05] MEDS: cefTRIAXone 2,000 MG in 0.9 % Sodium Chloride Mini Bag 100 ML IVPB SCH (08:10)
[2020-04-05] MEDS: Prenatal Vit/FA 1 EACH TABLET PO SCH (08:10)
[2020-04-05] MEDS: Magnesium Oxide 400 MG TABLET PO SCH ×2 (08:11→21:13)
[2020-04-05] MEDS: BuPROPion SR (12 HR) 150 MG TABLET PO SCH (08:11)
[2020-04-05] MEDS: Insulin LISPRO 300 UNITS/3 ML VIAL SUBQ SCH ×6 (08:15→18:00)
[2020-04-05] MEDS: Insulin DETEMIR 100 UNIT/ML X5UNITS SUBQ SCH ×2 (08:19→21:13)
[2020-04-05] MEDS: carvediloL 6.25 MG TABLET PO SCH ×2 (12:06→18:00)
[2020-04-05] MEDS: NIFEdipine XL (24 HR) 60 MG TAB.ER.24 PO SCH (12:06)
[2020-04-05] MEDS: Cyanocobalamin (B-12) 1,000 MCG/ML VIAL IM SCH (18:45)
[2020-04-05] MEDS: carvediloL 25 MG TABLET PO SCH (18:46)
[2020-04-05] MEDS: Latanoprost 2.5 ML BOTTLE RIGHT EYE SCH (21:14)
[2020-04-06] MEDS ORDERED: Acetaminophen IV 500 MG/50 ML BAG IVPB ONE (00:03)
[2020-04-06 03:32] LABS: Basophils % 0.3 %; Eosinophils # 0.1 K/mcL (0.0-0.6); Eosinophils % 1.3 %; Hematocrit 23.2 % (35.3-44.9); Hemoglobin 7.4 g/dL (11.5-15.4); Immature Granulocytes % 0.6 % (0-4); Lymphocytes # 1.1 K/mcL (0.6-4.6); Lymphocytes % 12.1 %; Mean Corpuscular HGB Conc 31.9 g/dL (31.6-35.5); Mean Corpuscular Hemoglobin 26.4 pg (28.0-33.3); Mean Corpuscular Volume 82.9 fL (83.0-100.0); Mean Platelet Volume 10.2 fL (9.4-12.4); Monocytes # 0.6 K/mcL (0.0-1.3); Neutrophils # 7.5 K/mcL (1.6-8.9); Platelet Count 280 K/mcL (140-400); Red Cell Distribution Width 13.8 % (11.5-14.5); Segmented Neutrophils % 79.7 %; White Blood Count 9.4 K/mcL (4.3-11.1)
[2020-04-06 04:47] LABS: Calcium 7.5 mg/dL (8.6-10.3); Potassium 3.9 mEq/L (3.5-5.1)
[2020-04-06] MEDS: *HR* Heparin 5,000 UNIT/ML VIAL SQ SCH ×2 (04:58→17:22)
[2020-04-06] MEDS: Levothyroxine 25 MCG TABLET PO SCH (05:13)
[2020-04-06] MEDS ORDERED: 0.9 % Sodium Chloride 250 ML IVC PRN (07:25)
[2020-04-06] MEDS ORDERED: *HR* Heparin 10,000 UNIT/10 ML VIAL IV PRN (07:25)
[2020-04-06] MEDS ORDERED: 0.9 % Sodium Chloride 1,000 ML PRIME SCH (07:30)
[2020-04-06] MEDS: Insulin LISPRO 300 UNITS/3 ML VIAL SUBQ SCH ×6 (08:27→17:21)
[2020-04-06] MEDS: Aspirin 325 MG TABLET PO SCH (08:41)
[2020-04-06] MEDS: Loratadine 10 MG TABLET PO SCH (08:41)
[2020-04-06] MEDS: BuPROPion SR (12 HR) 150 MG TABLET PO SCH (08:41)
[2020-04-06] MEDS: cefTRIAXone 2,000 MG in 0.9 % Sodium Chloride Mini Bag 100 ML IVPB SCH (08:41)
[2020-04-06] MEDS: Magnesium Oxide 400 MG TABLET PO SCH ×2 (08:42→21:53)
[2020-04-06] MEDS: NIFEdipine XL (24 HR) 60 MG TAB.ER.24 PO SCH (08:42)
[2020-04-06] MEDS: carvediloL 6.25 MG TABLET PO SCH ×2 (08:42→17:22)
[2020-04-06] MEDS: Prenatal Vit/FA 1 EACH TABLET PO SCH (08:42)
[2020-04-06] MEDS: Insulin DETEMIR 100 UNIT/ML X5UNITS SUBQ SCH ×2 (08:54→21:53)
[2020-04-06] MEDS: Latanoprost 2.5 ML BOTTLE RIGHT EYE SCH (21:55)
[2020-04-07] MEDS: *HR* Heparin 5,000 UNIT/ML VIAL SQ SCH ×2 (05:42→17:31)
[2020-04-07] MEDS: Levothyroxine 25 MCG TABLET PO SCH (05:42)
[2020-04-07 05:54] LABS: Basophils % 0.5 %; Eosinophils # 0.2 K/mcL (0.0-0.6); Eosinophils % 1.9 %; Hematocrit 24.4 % (35.3-44.9); Hemoglobin 7.7 g/dL (11.5-15.4); Immature Granulocytes % 0.7 % (0-4); Lymphocytes # 1.5 K/mcL (0.6-4.6); Lymphocytes % 17.1 %; Mean Corpuscular HGB Conc 31.6 g/dL (31.6-35.5); Mean Corpuscular Hemoglobin 26.2 pg (28.0-33.3); Mean Platelet Volume 9.7 fL (9.4-12.4); Monocytes # 0.6 K/mcL (0.0-1.3); Monocytes % 6.5 %; Neutrophils # 6.5 K/mcL (1.6-8.9); Platelet Count 323 K/mcL (140-400); Red Blood Count 2.94 M/mcL (3.82-4.97); Red Cell Distribution Width 13.5 % (11.5-14.5); Segmented Neutrophils % 73.3 %; White Blood Count 8.9 K/mcL (4.3-11.1)
[2020-04-07 06:09] LABS: Calcium 7.9 mg/dL (8.6-10.3); Potassium 3.8 mEq/L (3.5-5.1)
[2020-04-07] MEDS ORDERED: *HR* Heparin 10,000 UNIT/10 ML VIAL IV PRN (07:35)
[2020-04-07] MEDS ORDERED: 0.9 % Sodium Chloride 250 ML IVC PRN (07:35)
[2020-04-07] MEDS ORDERED: 0.9 % Sodium Chloride 1,000 ML PRIME SCH (07:45)
[2020-04-07] MEDS: Insulin LISPRO 300 UNITS/3 ML VIAL SUBQ SCH ×6 (07:46→17:31)
[2020-04-07] MEDS: carvediloL 6.25 MG TABLET PO SCH ×2 (11:26→17:30)
[2020-04-07] MEDS: Loratadine 10 MG TABLET PO SCH (11:26)
[2020-04-07] MEDS: Insulin DETEMIR 100 UNIT/ML X5UNITS SUBQ SCH ×2 (11:26→21:25)
[2020-04-07] MEDS: Aspirin Enteric Coated 81 MG Tablet PO SCH (11:26)
[2020-04-07] MEDS: NIFEdipine XL (24 HR) 60 MG TAB.ER.24 PO SCH (11:27)
[2020-04-07] MEDS: Prenatal Vit/FA 1 EACH TABLET PO SCH (11:27)
[2020-04-07] MEDS: Magnesium Oxide 400 MG TABLET PO SCH ×2 (11:27→21:24)
[2020-04-07] MEDS: BuPROPion SR (12 HR) 150 MG TABLET PO SCH (11:36)
[2020-04-07] MEDS ORDERED: *HR* Labetalol 20 MG/4 ML SYRINGE IVP ONE (20:38)
[2020-04-07] MEDS: Latanoprost 2.5 ML BOTTLE RIGHT EYE SCH (21:26)
[2020-04-08] MEDS: *HR* Heparin 5,000 UNIT/ML VIAL SQ SCH ×2 (06:06→18:25)
[2020-04-08] MEDS: Levothyroxine 25 MCG TABLET PO SCH (06:09)
[2020-04-08 07:34] LABS: Basophils # 0.1 K/mcL (0.0-0.2); Basophils % 0.6 %; Eosinophils # 0.2 K/mcL (0.0-0.6); Eosinophils % 2.1 %; Hematocrit 27.6 % (35.3-44.9); Hemoglobin 8.8 g/dL (11.5-15.4); Immature Granulocytes % 0.7 % (0-4); Lymphocytes # 1.5 K/mcL (0.6-4.6); Lymphocytes % 14.3 %; Mean Corpuscular HGB Conc 31.9 g/dL (31.6-35.5); Mean Corpuscular Hemoglobin 26.3 pg (28.0-33.3); Mean Corpuscular Volume 82.6 fL (83.0-100.0); Mean Platelet Volume 9.2 fL (9.4-12.4); Monocytes # 0.6 K/mcL (0.0-1.3); Monocytes % 5.8 %; Neutrophils # 8.1 K/mcL (1.6-8.9); Platelet Count 377 K/mcL (140-400); Red Blood Count 3.34 M/mcL (3.82-4.97); Red Cell Distribution Width 13.5 % (11.5-14.5); Segmented Neutrophils % 76.5 %; White Blood Count 10.5 K/mcL (4.3-11.1)
[2020-04-08 07:54] LABS: Calcium 8.4 mg/dL (8.6-10.3); Potassium 4.1 mEq/L (3.5-5.1)
[2020-04-08] MEDS: Insulin LISPRO 300 UNITS/3 ML VIAL SUBQ SCH ×5 (07:56→18:28)
[2020-04-08] MEDS: Prenatal Vit/FA 1 EACH TABLET PO SCH (07:57)
[2020-04-08] MEDS: Aspirin Enteric Coated 81 MG Tablet PO SCH (07:57)
[2020-04-08] MEDS: Magnesium Oxide 400 MG TABLET PO SCH ×2 (07:57→20:51)
[2020-04-08] MEDS: BuPROPion SR (12 HR) 150 MG TABLET PO SCH (07:58)
[2020-04-08] MEDS: carvediloL 6.25 MG TABLET PO SCH ×2 (07:58→18:25)
[2020-04-08] MEDS: Loratadine 10 MG TABLET PO SCH (07:58)
[2020-04-08] MEDS: NIFEdipine XL (24 HR) 60 MG TAB.ER.24 PO SCH (07:59)
[2020-04-08] MEDS: Insulin DETEMIR 100 UNIT/ML X5UNITS SUBQ SCH ×2 (08:03→20:50)
[2020-04-08] MEDS ORDERED: 0.9 % Sodium Chloride 250 ML IVC PRN (08:14)
[2020-04-08] MEDS ORDERED: *HR* Heparin 10,000 UNIT/10 ML VIAL IV PRN (08:19)
[2020-04-08] MEDS: hydrALAZINE 25 MG TABLET PO SCH ×2 (12:55→18:25)
[2020-04-08] MEDS: Latanoprost 2.5 ML BOTTLE RIGHT EYE SCH (20:53)
[2020-04-09] MEDS: hydrALAZINE 25 MG TABLET PO SCH ×3 (00:35→16:52)
[2020-04-09] MEDS: Levothyroxine 25 MCG TABLET PO SCH (06:02)
[2020-04-09] MEDS: *HR* Heparin 5,000 UNIT/ML VIAL SQ SCH ×2 (06:02→17:03)
[2020-04-09] MEDS: Insulin DETEMIR 100 UNIT/ML X5UNITS SUBQ SCH ×2 (07:58→21:01)
[2020-04-09] MEDS: NIFEdipine XL (24 HR) 60 MG TAB.ER.24 PO SCH (07:59)
[2020-04-09] MEDS: Magnesium Oxide 400 MG TABLET PO SCH ×2 (07:59→20:58)
[2020-04-09] MEDS: Prenatal Vit/FA 1 EACH TABLET PO SCH (07:59)
[2020-04-09] MEDS: carvediloL 6.25 MG TABLET PO SCH ×2 (07:59→16:52)
[2020-04-09] MEDS: Insulin LISPRO 300 UNITS/3 ML VIAL SUBQ SCH ×6 (07:59→16:49)
[2020-04-09] MEDS: BuPROPion SR (12 HR) 150 MG TABLET PO SCH (08:00)
[2020-04-09] MEDS: Aspirin Enteric Coated 81 MG Tablet PO SCH (08:00)
[2020-04-09] MEDS: Loratadine 10 MG TABLET PO SCH (08:00)
[2020-04-09 09:49] LABS: Calcium 8.2 mg/dL (8.6-10.3); Potassium 4.5 mEq/L (3.5-5.1)
[2020-04-09] MEDS: Latanoprost 2.5 ML BOTTLE RIGHT EYE SCH (21:01)
[2020-04-10] MEDS: hydrALAZINE 25 MG TABLET PO SCH ×2 (00:11→11:55)
[2020-04-10 03:13] LABS: Basophils # 0.1 K/mcL (0.0-0.2); Basophils % 0.5 %; Eosinophils # 0.3 K/mcL (0.0-0.6); Eosinophils % 2.6 %; Hematocrit 27.5 % (35.3-44.9); Hemoglobin 8.5 g/dL (11.5-15.4); Immature Granulocytes % 0.6 % (0-4); Lymphocytes # 1.8 K/mcL (0.6-4.6); Lymphocytes % 16.1 %; Mean Corpuscular HGB Conc 30.9 g/dL (31.6-35.5); Mean Corpuscular Hemoglobin 25.6 pg (28.0-33.3); Mean Corpuscular Volume 82.8 fL (83.0-100.0); Mean Platelet Volume 9.1 fL (9.4-12.4); Monocytes # 0.6 K/mcL (0.0-1.3); Monocytes % 5.6 %; Neutrophils # 8.3 K/mcL (1.6-8.9); Platelet Count 338 K/mcL (140-400); Red Blood Count 3.32 M/mcL (3.82-4.97); Red Cell Distribution Width 13.5 % (11.5-14.5); Segmented Neutrophils % 74.6 %; White Blood Count 11.1 K/mcL (4.3-11.1)
[2020-04-10 03:32] LABS: Calcium 8.3 mg/dL (8.6-10.3)
[2020-04-10] MEDS: *HR* Heparin 5,000 UNIT/ML VIAL SQ SCH (06:09)
[2020-04-10] MEDS: Levothyroxine 25 MCG TABLET PO SCH (06:12)
[2020-04-10] MEDS ORDERED: 0.9 % Sodium Chloride 250 ML IVC PRN (07:58)
[2020-04-10] MEDS: Insulin LISPRO 300 UNITS/3 ML VIAL SUBQ SCH ×4 (08:23→12:01)
[2020-04-10] MEDS ORDERED: Lidocaine Viscous Oral Soln 15 ML SOLUTION MM PRN (08:39)
[2020-04-10] MEDS ORDERED: 0.9 % Sodium Chloride 500 ML IVC ONE (08:40)
[2020-04-10 08:45] VITALS: BP 181/95
[2020-04-10] MEDS: *HR* Midazolam HCl 5 MG/5 ML VIAL IVP PRN ×4 (09:15→09:35)
[2020-04-10] MEDS: *HR* FentaNYL (PF) 100 MCG/2 ML VIAL IVP PRN ×3 (09:15→09:25)
[2020-04-10] MEDS: BuPROPion SR (12 HR) 150 MG TABLET PO SCH (11:54)
[2020-04-10] MEDS: Magnesium Oxide 400 MG TABLET PO SCH (11:55)
[2020-04-10] MEDS: Prenatal Vit/FA 1 EACH TABLET PO SCH (11:55)
[2020-04-10] MEDS: carvediloL 6.25 MG TABLET PO SCH (11:55)
[2020-04-10] MEDS: Loratadine 10 MG TABLET PO SCH (11:55)
[2020-04-10] MEDS: Aspirin Enteric Coated 81 MG Tablet PO SCH (11:55)
[2020-04-10] MEDS: NIFEdipine XL (24 HR) 60 MG TAB.ER.24 PO SCH (11:55)
[2020-04-10] MEDS: Insulin DETEMIR 100 UNIT/ML X5UNITS SUBQ SCH (11:57)
== END 2020-04-10 15:35 | disposition home health service (06) | DRG 469 ==
LOC: EMEROOARM 12:17 → 2NNU 12:17 → SUATTDRO 16:01 → 2NNU 17:20 → SUATTDRO 03-28 15:16 → CDU 03-30 09:14 → 3ANU 03-31 23:17
PROVIDERS: ADMIT Internal Medicine; ATTEND Internal Medicine
PROC: IRPERMA (2020-04-04 12:00)